=== PATIENT | male | born 1945 | race Caucasian/White ===

== ENCOUNTER 2016-11-11 19:22 | Emergency (ER) | payer MEDICARE, OTHER ==
[~2016-11-11] VITALS: Ht 188 cm; Wt 90.7 kg
[~2016-11-11 19:22] MED LIST: BYSTOLIC5 MG PO; COUMADIN1 MG PO; SYNTHROID25 MCG PO
== END 2016-11-11 19:50 | disposition short-term general hospital (02) ==
LOC: ER 19:22
DX: J11.1 Influenza due to unidentified influenza virus with other respiratory manifestations (principal); I48.91 Unspecified atrial fibrillation; Z79.01 Long term (current) use of anticoagulants; Z79.899 Other long term (current) drug therapy

== ENCOUNTER 2016-11-28 09:04 | Emergency (ER) | payer MEDICARE, OTHER ==
[~2016-11-28] VITALS: Ht 172.7 cm; Wt 81.6 kg
== END 2016-11-28 10:09 | disposition short-term general hospital (02) ==
LOC: ER 09:04
DX: R20.0 Anesthesia of skin (principal); I48.91 Unspecified atrial fibrillation; Z79.01 Long term (current) use of anticoagulants; F41.9 Anxiety disorder, unspecified